=== PATIENT | male | born 1945 | race Caucasian/White ===

== ENCOUNTER → 2024-08-20 17:31 | Outpatient (REF) | payer MEDICARE, SELFPAY | LOC: RAD 17:31 | PROVIDERS: ATTENDING PHYSICIAN Specialist; FAMILY PHYSICIAN Family Medicine | DX: R31.0 Gross hematuria (principal) | CPT/HCPCS: 74178; Q9967 ==

== ENCOUNTER 2024-08-28 06:14 | Day surgery (SDC) | payer MEDICARE, SELFPAY ==
[2024-08-27 07:59] VITALS: BMI 20.4
--- NOTE | 2024-08-27 15:26 | PTCARENOTE ---
Abnormal ECG done 08/27/[address] Han, no further interventions requested.
[2024-08-28] VITALS (28 sets, daily range): BP systolic 101–135; BP diastolic 57–90; BMI 20.4
[2024-08-28] MEDS: NORMOSOL-R/PLASMALYTE-A 1000 IV (07:00)
--- NOTE | 2024-08-28 10:10 | W.PN.ADMIT ---
Progress Note - Admit
Progress Note - Admit
s/p cystolitholopaxy and TURP
admit for [facility]
[2024-08-28 10:46] LABS: Hematocrit 40.5 % (39.0-52.0); Hemoglobin 13.3 g/dL (13.0-18.0); Mean Corp Hgb Conc. 32.8 g/dL (33.0-37.0); Mean Corpuscular Volume 93.1 fL (80.0-94.0); Platelet Count 136 10^3/uL (130-400); Red Cell Dist. Width 12.4 % (11.5-14.5)
[2024-08-28 10:48] LABS: Blood Urea Nitrogen 15 mg/dl (9-20); Calcium 10.1 mg/dl (8.4-10.2); Carbon Dioxide 27 mmol/L (22-30); Chloride 108 mmol/L (98-107); Estimated Creatinine Clearance 64 ml/min; Glucose 108 mg/dl (70-99); Potassium 4.9 mmol/L (3.5-5.1); Sodium 137 mmol/L (135-145); eGFR > 60.00
--- NOTE | 2024-08-28 15:35 | PTCARENOTE ---
Patient received from PACU at 1535. Patient AAOx3, c/o intermittent bladder spams. Valium offered-Patient refused, because at the moment he is not having bladder spasms. Call madsen in reach, patient tolerating clear liquids. Spouse at bedside.
[2024-08-28] MEDS: NSS 1000 IV (17:00)
[2024-08-28] MEDS: TYLENOL 650 MG PO (17:03)
[2024-08-28] MEDS: VIBRAMYCIN 100 MG PO (20:17)
[2024-08-28] MEDS: UROCIT-K 10 MEQ PO (20:17)
[2024-08-28] MEDS: COLACE 100 MG PO (20:17)
[2024-08-28] MEDS: SIMBRINZA 1%-0.2% OPHTH SUSP 1 DROP OPHTH (20:18)
[2024-08-28] MEDS: VALIUM INJECTION 5 MG IV (22:27)
[2024-08-29] MEDS: NSS 1000 IV (02:45)
[2024-08-29 03:00] VITALS: BP 108/62
[2024-08-29] MEDS: MELATONIN 5 MG PO ×2 (03:13→21:09)
--- NOTE | 2024-08-29 07:03 | W.PN.URO.CBU ---
Today's Communication / Plan
-
routine post TURP care
Assessment / Plan
-
s/p cystolitholopaxy and TURP
UOOB
regular diet
wean cbi- off at midnight- possible TOV tomorrow
Diagnosis
-
Date of Service: August 29, 2024
-
Patient Diagnosis:
bladder stone
BPH
Post Op Day:
cystolitholopaxy and TURP 08/28
Subjective
-
pt comfortable
urine pink on low rate cbi
Objective
-
Vital Signs
Temp Pulse Resp BP Pulse Ox
97.7 F 78 16 108/62 99
08/29/24 03:00 08/29/24 03:00 08/29/24 03:00 08/29/24 03:00 08/29/24 03:00
Intake and Output
08/28/24 08/29/24 08/30/24
06:59 06:59 06:59
Intake Total 620 / 620
Output Total 2049
Balance -1430 / -1430
Intake:
Oral fluids 420 / 420
IV fluids (Total) 200 / 200
Output:
True Urine Output from CBI 2049
Review of Systems
-
Constitutional: No Symptoms
Respiratory: No Symptoms
Cardiac: No Symptoms
Abdomen/GI: No Symptoms
Physical Exam
-
General - no acute distress
Abdomen - soft, non-tender
Genitalia - normal- [address]
[2024-08-29 07:08] VITALS: BP 110/73
[2024-08-29 07:39] LABS: Hematocrit 44.5 % (39.0-52.0); Hemoglobin 14.9 g/dL (13.0-18.0); Mean Corp Hgb Conc. 33.5 g/dL (33.0-37.0); Mean Corpuscular Volume 92.5 fL (80.0-94.0); Platelet Count 164 10^3/uL (130-400); Red Cell Dist. Width 12.3 % (11.5-14.5)
[2024-08-29 07:48] LABS: Blood Urea Nitrogen 13 mg/dl (9-20); Calcium 10.8 mg/dl (8.4-10.2); Carbon Dioxide 23 mmol/L (22-30); Chloride 112 mmol/L (98-107); Estimated Creatinine Clearance 72 ml/min; Glucose 101 mg/dl (70-99); Potassium 4.7 mmol/L (3.5-5.1); Sodium 138 mmol/L (135-145); eGFR > 60.00
[2024-08-29] MEDS: COLACE 100 MG PO ×2 (08:12→20:01)
[2024-08-29] MEDS: PROSCAR 5 MG PO (08:12)
[2024-08-29] MEDS: PROTONIX 40 MG PO (08:12)
[2024-08-29] MEDS: UROCIT-K 10 MEQ PO ×2 (08:12→20:00)
[2024-08-29] MEDS: VIBRAMYCIN 100 MG PO ×2 (08:12→20:00)
[2024-08-29] MEDS: FLOMAX 0.4 MG PO (08:12)
[2024-08-29] MEDS: CRESTOR 5 MG PO (08:12)
[2024-08-29] MEDS: CLARITIN 10 MG PO (08:12)
[2024-08-29] MEDS: SIMBRINZA 1%-0.2% OPHTH SUSP 1 DROP OPHTH ×2 (08:13→21:09)
--- NOTE | 2024-08-29 09:21 | CM ---
Cm reviewed medical records. Patient confirmed demographics. Patient lives independently with . Patient has a remote history of [facility], but is not currently on service with any agency. Patient does not have a SNF history. Patient is active with
his PCP. Patient has medication coverage. Patient would be agreeable to [facility] if needed for winkler care.
PLAN: Home with no needs, pending TOV if home winkler.
[2024-08-29 11:06] VITALS: BP 100/53
[2024-08-29 15:03] VITALS: BP 98/55
[2024-08-29 23:50] VITALS: BP 103/67
[2024-08-30 07:20] VITALS: BP 119/70
[2024-08-30] MEDS: SIMBRINZA 1%-0.2% OPHTH SUSP 1 DROP OPHTH (09:33)
[2024-08-30] MEDS: PROTONIX 40 MG PO (09:34)
[2024-08-30] MEDS: PROSCAR 5 MG PO (09:34)
[2024-08-30] MEDS: CRESTOR 5 MG PO (09:34)
[2024-08-30] MEDS: CLARITIN 10 MG PO (09:34)
[2024-08-30] MEDS: UROCIT-K 10 MEQ PO (09:35)
[2024-08-30] MEDS: COLACE 100 MG PO (09:35)
[2024-08-30] MEDS: FLOMAX 0.4 MG PO (09:35)
[2024-08-30] MEDS: VIBRAMYCIN 100 MG PO (09:35)
[2024-08-30] MEDS: TYLENOL 650 MG PO (09:49)
[2024-08-30 12:47] VITALS: BP 102/54
--- NOTE | 2024-08-30 14:03 | CM ---
Patient has been medically cleared for discharge to home with no additional skilled services. Acevedo has been removed and patient voiding. Patient arranged for transport home.
== END 2024-08-30 13:49 | disposition home or self-care (01) ==
LOC: SDS 06:14
PROVIDERS: ATTENDING PHYSICIAN Specialist; FAMILY PHYSICIAN Family Medicine
DX: N40.0 Benign prostatic hyperplasia without lower urinary tract symptoms (principal); N21.0 Calculus in bladder
CPT/HCPCS: 52601; 52318; 36415; 80048; 85027; 87086; 88305; 93005

== ENCOUNTER 2024-09-12 06:32 | Day surgery (SDC) | payer MEDICARE, SELFPAY ==
[2024-09-12] VITALS (10 sets, daily range): BP systolic 97–123; BP diastolic 54–69; BMI 20.4
[2024-09-12] MEDS: NORMOSOL-R/PLASMALYTE-A 1000 IV (09:50)
[2024-09-12] MEDS: DETROL LA 4 MG PO (12:35)
== END 2024-09-12 13:48 | disposition home or self-care (01) ==
LOC: SDS 06:32
PROVIDERS: ATTENDING PHYSICIAN Specialist
DX: N21.0 Calculus in bladder (principal); N20.0 Calculus of kidney; N21.1 Calculus in urethra
CPT/HCPCS: 52353; 52317; 76000